=== PATIENT | male | born 1950 | race Caucasian/White ===

== ENCOUNTER 2022-01-10 12:29 | Inpatient (IN) | payer OTHER ==
[~2022-01-10] VITALS: Ht 177.8 cm; Wt 64.3 kg
[~2022-01-10 12:29] MED LIST: Aspirin EC81 MG PO; DOXE25 PO; FAMO20 PO; FURO40 PO; K-TAB ER20 MEQ PO; METO100ER PO; MIRT30 PO; Naltrexone HCl50 MG PO; TERA5 PO
[2022-01-10 13:25] LABS: BASOPHILS ABSOLUTE AUTO 0.09 K/mm3 (0.00-0.23); BASOPHILS PERCENT AUTO 0 % (0-2); EOSINOPHILS PERCENT AUTO 1 % (0-6); Hematocrit 47.9 % (37.0-53.0); Hemoglobin 13.1 g/dL (13.5-17.5); IMMATURE GRAN ABSOLUTE AUTO 1.43 K/mm3 (0.00-0.10); IMMATURE GRAN PERCENT AUTO 4 % (0-1); LYMPHOCYTES ABSOLUTE AUTO 0.77 K/mm3 (0.84-5.20); LYMPHOCYTES PERCENT AUTO 2 % (21-46); MONOCYTES ABSOLUTE AUTO 1.77 K/mm3 (0.16-1.47); MONOCYTES PERCENT AUTO 5 % (4-13); Mean Corpuscular HGB 18.3 pg (26.0-34.0); Mean Corpuscular HGB Conc 27.3 g/dL (31.5-36.5); Mean Corpuscular Volume 67 fL (80-100); NEUTROPHILS ABSOLUTE AUTO 33.49 K/mm3 (1.96-9.15); NEUTROPHILS PERCENT AUTO 89 % (41-73); Platelet Count 484 K/mm3 (150-400); RDW Coefficient Variation 23.1 % (11.7-14.2); RDW Standard Deviation 49.3 fL (35.1-46.3); Red Blood Cell Count 7.14 M/mm3 (4.30-5.90); White Blood Cell Count 37.75 K/mm3 (4.00-11.30)
[2022-01-10 13:33] LABS: Alanine Aminotransfer (ALT/SGP 18 U/L (12-78); Albumin, Blood 2.8 g/dL (3.4-5.0); Albumin/Globulin Ratio 0.7 (0.8-1.8); Alk Phos 141 U/L (50-136); Anion Gap 4 mmol/L (6-16); Aspartate Aminotrans (AST/SGOT 19 U/L (12-37); Bilirubin, Total 0.6 mg/dL (0.1-1.0); Blood Urea Nitrogen 18 mg/dL (8-24); Bun/Creatinine Ratio 18.5 (12.0-20.0); CO2, Blood 33 mmol/L (21-32); Calcium, Blood 9.1 mg/dL (8.5-10.1); Chloride, Blood 107 mmol/L (98-108); Creatinine, Blood 0.98 mg/dL (0.60-1.20); Globulin, Blood 4.2 g/dL (2.2-4.0); Glomerular Filtration Rate >60 (60-); Glucose, Blood 80 mg/dL (70-99); Potassium, Blood 4.9 mmol/L (3.5-5.5); Sodium, Blood 144 mmol/L (136-145)
[2022-01-10 14:22] LABS: Source, Urine Clean Catch
[2022-01-10 14:26] LABS: Appearance, Urine Clear (Clear); Bilirubin, Urine Neg (Neg); Blood, Urine 1+ (Neg); Color, Urine Yellow (P-Yellow); Glucose Qualitative, Urine Neg (Neg); Ketones, Urine Neg (Neg); Leukocyte Esterase, Urine Neg (Neg); Nitrite, Urine Neg (Neg); Protein, Urine 3+ (Neg); Specific Gravity, Urine 1.015 (1.003-1.022); Urobilinogen, Urine NORM (Normal)
[2022-01-10 15:05] LABS: Bacteria Few /hpf; Mucus Light (0-Heavy); Squamous Epithelial Cells Rare /hpf (Few)
[2022-01-10 15:06] LABS: Hyaline Casts 0-2 /lpf (0-2)
[2022-01-10 15:19] LABS: U Amphetamine Screen Not Detected; U Barbituate Screen Not Detected; U Benzodiazapine Screen Not Detected; U Buprenorphine Screen Not Detected; U Cannabinoids Screen Not Detected; U Cocaine Screen Not Detected; U Methadone Screen Not Detected; U Methamphetamine Screen Not Detected; U Opiates Screen Not Detected; U Oxycodone Screen Not Detected; U Phencyclidine Screen Not Detected; U Propoxyphene Screen Not Detected
[2022-01-10 15:45] LABS: Influenza A, PCR NEGATIVE (NEGATIVE); Influenza B, PCR NEGATIVE (NEGATIVE); Resp Syncytial Virus, PCR NEGATIVE (NEGATIVE); SARS-Cov-2 (COVID-19) PCR, MMC NEGATIVE (NEGATIVE)
[2022-01-10] MEDS ORDERED: LISI5 PO (19:59)
[2022-01-10] MEDS ORDERED: STRIVERDI RESPIM4 G1 INH (20:01)
[2022-01-11 04:47] LABS: Hematocrit 48.7 % (37.0-53.0); Hemoglobin 13.1 g/dL (13.5-17.5); Mean Corpuscular HGB 18.2 pg (26.0-34.0); Mean Corpuscular HGB Conc 26.9 g/dL (31.5-36.5); Mean Corpuscular Volume 68 fL (80-100); Platelet Count 487 K/mm3 (150-400); RDW Coefficient Variation 22.9 % (11.7-14.2); RDW Standard Deviation 48.8 fL (35.1-46.3); Red Blood Cell Count 7.19 M/mm3 (4.30-5.90); White Blood Cell Count 37.93 K/mm3 (4.00-11.30)
[2022-01-11 05:14] LABS: Bun/Creatinine Ratio 23.7 (12.0-20.0); Calcium, Blood 9.1 mg/dL (8.5-10.1); Creatinine, Blood 1.31 mg/dL (0.60-1.20); Magnesium, Blood 2.4 mg/dL (1.6-2.4); Potassium, Blood 4.8 mmol/L (3.5-5.5)
--- NOTE | 2022-01-11 05:17 | NUR ---
SHIFT SUMMARY 71 Y M ADMITTED WITH HYPOXIA AND BILAT PNEUPONIA, AND HX OF COPD. PT IS A&O, PLEASANT AND COOPERATIVE WITH CARE. PT HAS BEEN UP IND IN ROOM FOR BRP AND TO SIT UP IN CAHIR. PT REPORTS HE IS FEELING RESTLESS AND NORMALLY HAS A DIFFICULT TIME SLEEPING. PT DID HAVE AN EPISODE OF SATS DROPPING INTO 70'S WHEN PT WAS UP AND WALKING WITHOUT ON. O2 REPLACED AT 3L VIA N/C AND SATS IMPOVED TO >90. NO OTHER ACUTE CHANGES THIS SHIFT.
--- NOTE | 2022-01-11 16:48 | NUR ---
SHIFT SUMMARY THE PATIENT IS ALERT AND ORIENTED X4, COOPERATIVE WITH CARE MOST OF THE TIME. THE PATIENT IS CURRENTLY ON 3LPM OF 02 VIA NASAL CANNULA. THE PATIENT CAN BE NONCOMPLIANT WITH IT AND DESATS. THE PATIENT REFUSED MEDICATIONS AT FIRST THIS AM. THEN AFTER A DISCUSSION THEY FINALLY TOOK THEM. THE PATIENT HAS EDEMA REDDENED BLE'S. THE PATIENT COMPLAINED OF DRY EYES. ARTIFICAL TEARS ORDERED PRN FOR THEM. NO ACUTE CHANGES THIS SHIFT. THE PATIENT MAY POSSIBLY DC TOMORROW. CALL LIGHT WITHIN REACH, BED IN LOWEST POSITION.
[2022-01-12 05:42] LABS: Hematocrit 46.9 % (37.0-53.0); Hemoglobin 12.6 g/dL (13.5-17.5); Mean Corpuscular HGB 18.3 pg (26.0-34.0); Mean Corpuscular HGB Conc 26.9 g/dL (31.5-36.5); Mean Corpuscular Volume 68 fL (80-100); Platelet Count 451 K/mm3 (150-400); RDW Coefficient Variation 22.7 % (11.7-14.2); RDW Standard Deviation 49.6 fL (35.1-46.3); White Blood Cell Count 30.29 K/mm3 (4.00-11.30)
--- NOTE | 2022-01-12 06:07 | NUR ---
SHIFT SUMMARY PT IS A 71 Y/O MALE, ADMITTED FOR HYPOXIA. HE IS A&O X 3, INDEPENDENT IN THE ROOM. PT IS ON 3L O2 VIA NC, SATTING IN THE 90S. PT DESATS TO 80S WHILE ON RA. VITAL SIGNS OTHERWISE STABLE. NO C/O ACUTE PAIN, NAUSEA OR SOB. NO OTHER ACUTE CHANGES IN PT CONDITION NOTED DURING THE NIGHT. WILL CONTINUE TO MONITOR AND TREAT PER EMAR UNTIL HAND OFF TO DAY SHIFT RN.
[2022-01-12 06:17] LABS: BAND PERCENT MAN 8 % (0-8); BASOPHILS PERCENT MAN 0 % (0-2); EOSINOPHILS PERCENT MAN 0 % (0-6); LYMPHOCYTES PERCENT MAN 3 % (21-46); MONOCYTES ABSOLUTE MAN 1.51 K/mm3 (0.16-1.47); MONOCYTES PERCENT MAN 5 % (4-13); NEUTROPHILS ABSOLUTE MAN 27.86 K/mm3 (1.96-9.15); SEG NEUTROPHILS PERCENT MAN 84 % (41-73); TOTAL CELLS COUNTED 100
[2022-01-12 07:04] LABS: Albumin, Blood 2.6 g/dL (3.4-5.0); Albumin/Globulin Ratio 0.7 (0.8-1.8); Bilirubin, Total 0.4 mg/dL (0.1-1.0); Bun/Creatinine Ratio 22.5 (12.0-20.0); Creatinine, Blood 1.78 mg/dL (0.60-1.20); Globulin, Blood 3.7 g/dL (2.2-4.0); Potassium, Blood 4.7 mmol/L (3.5-5.5); Total Protein, Blood 6.3 g/dL (6.4-8.2)
--- NOTE | 2022-01-13 04:37 | NUR ---
RESEARCH PHARMACIST SUMMARY ADMITTED FOR HYPOXIA. PT HAS BEEN SATTING AT 72% ON ROOM AIR THROUGHOUT THE NIGHT PT HAS TAKEN OFF HIS OXYGEN MANY TIMES. OXYGEN INCREASED TO 9L BY HIGH FLOW CANNULA WHILE ASLEEP AND SATTING 95-97% ON THIS. PT RESTLESS THROUGHOUT THE NIGHT AND TAKES PULSE OX OFF FINGER FREQUENTLY. PT GRUMBLING WHEN OXYGEN PLACED BACK ON. PT REFUSING TO TAKE SOME NIGHT MEDICATIONS SAYING "THEY'RE JUST SLIPPING EXTRA MEDICATIONS IN THERE THAT I DON'T NEED." PT EDUCATED ON HIS HEART DIAGNOSES BUT PT REFUSES THAT HE HAS CERTAIN DIAGNOSES. PT HAS BEEN INDEPENDENT IN THE ROOM BUT TAKES OFF HIS OXYGEN WHEN HE GETS OUT OF BED AND HAS TO BE REMINDED TO PUT IT BACK ON.
[2022-01-13 05:39] LABS: BASOPHILS ABSOLUTE AUTO 0.06 K/mm3 (0.00-0.23); BASOPHILS PERCENT AUTO 0 % (0-2); EOSINOPHILS ABSOLUTE AUTO 0.24 K/mm3 (0.00-0.68); EOSINOPHILS PERCENT AUTO 1 % (0-6); Hematocrit 44.8 % (37.0-53.0); Hemoglobin 12.2 g/dL (13.5-17.5); IMMATURE GRAN ABSOLUTE AUTO 0.38 K/mm3 (0.00-0.10); IMMATURE GRAN PERCENT AUTO 1 % (0-1); LYMPHOCYTES ABSOLUTE AUTO 0.71 K/mm3 (0.84-5.20); LYMPHOCYTES PERCENT AUTO 2 % (21-46); MONOCYTES ABSOLUTE AUTO 0.95 K/mm3 (0.16-1.47); MONOCYTES PERCENT AUTO 3 % (4-13); Mean Corpuscular HGB 18.4 pg (26.0-34.0); Mean Corpuscular HGB Conc 27.2 g/dL (31.5-36.5); Mean Corpuscular Volume 68 fL (80-100); NEUTROPHILS ABSOLUTE AUTO 26.78 K/mm3 (1.96-9.15); NEUTROPHILS PERCENT AUTO 92 % (41-73); Platelet Count 428 K/mm3 (150-400); RDW Coefficient Variation 22.8 % (11.7-14.2); RDW Standard Deviation 49.8 fL (35.1-46.3); Red Blood Cell Count 6.62 M/mm3 (4.30-5.90); White Blood Cell Count 29.12 K/mm3 (4.00-11.30)
[2022-01-13 05:50] LABS: Albumin, Blood 2.7 g/dL (3.4-5.0); Anion Gap 4 mmol/L (6-16); Blood Urea Nitrogen 41 mg/dL (8-24); Bun/Creatinine Ratio 29.1 (12.0-20.0); CO2, Blood 35 mmol/L (21-32); Calcium, Blood 9.1 mg/dL (8.5-10.1); Chloride, Blood 102 mmol/L (98-108); Creatinine, Blood 1.41 mg/dL (0.60-1.20); Glomerular Filtration Rate 49 (60-); Glucose, Blood 86 mg/dL (70-99); Phosphorus, Blood 4.3 mg/dL (2.5-4.9); Potassium, Blood 4.7 mmol/L (3.5-5.5); Sodium, Blood 141 mmol/L (136-145)
--- NOTE | 2022-01-13 05:54 | NUR ---
PT SATURATION DROPPING TO 84% WITH 9L HIGH FLOW IN NC. PT IS SNORING AND NOTES THAT HE IS A MOUTH BREATHER AND OFTEN HAS TO PUT THE CANNULA IN HIS MOUTH AT HOME. CANNULA MOVED TO HIS MOUTH AND INCREASED TO 11L WITH IMPROVEMENT TO 92%.
--- NOTE | 2022-01-13 17:34 | NUR ---
SHIFT SUMMARY PT AOX4; PT CALLS APPROPRIATELY. PT VERY FRUSTRATED ABOUT NOT GOING HOME YESTERDAY. PT IS ON 6L O2, DYSPNEA ON EXERTION. SATS LOW 90S. PT ALSO DESATS WHEN MOVING AROUND TO HIGH 80S. PT KEEPS TAKING OFF THE NS IN HIS NOSE, KEEP REMINDING THIS PT. DENIES ANY CP OR ANY CONCERNS AT THIS TIME. BED IS IN THE LOWEST POSITION AND CALL LIGHT WITHIN REACH
[2022-01-14 05:29] LABS: BASOPHILS ABSOLUTE AUTO 0.04 K/mm3 (0.00-0.23); BASOPHILS PERCENT AUTO 0 % (0-2); EOSINOPHILS ABSOLUTE AUTO 0.24 K/mm3 (0.00-0.68); EOSINOPHILS PERCENT AUTO 1 % (0-6); Hematocrit 45.8 % (37.0-53.0); Hemoglobin 12.2 g/dL (13.5-17.5); IMMATURE GRAN ABSOLUTE AUTO 0.43 K/mm3 (0.00-0.10); IMMATURE GRAN PERCENT AUTO 2 % (0-1); LYMPHOCYTES ABSOLUTE AUTO 0.67 K/mm3 (0.84-5.20); LYMPHOCYTES PERCENT AUTO 3 % (21-46); MONOCYTES ABSOLUTE AUTO 0.84 K/mm3 (0.16-1.47); MONOCYTES PERCENT AUTO 3 % (4-13); Mean Corpuscular HGB 18.4 pg (26.0-34.0); Mean Corpuscular HGB Conc 26.6 g/dL (31.5-36.5); Mean Corpuscular Volume 69 fL (80-100); NEUTROPHILS ABSOLUTE AUTO 24.44 K/mm3 (1.96-9.15); NEUTROPHILS PERCENT AUTO 92 % (41-73); Platelet Count 397 K/mm3 (150-400); RDW Coefficient Variation 22.4 % (11.7-14.2); RDW Standard Deviation 50.7 fL (35.1-46.3); Red Blood Cell Count 6.63 M/mm3 (4.30-5.90); White Blood Cell Count 26.66 K/mm3 (4.00-11.30)
[2022-01-14 05:43] LABS: Albumin, Blood 2.8 g/dL (3.4-5.0); Anion Gap 3 mmol/L (6-16); Blood Urea Nitrogen 36 mg/dL (8-24); Bun/Creatinine Ratio 33.6 (12.0-20.0); CO2, Blood 36 mmol/L (21-32); Calcium, Blood 8.9 mg/dL (8.5-10.1); Chloride, Blood 100 mmol/L (98-108); Creatinine, Blood 1.07 mg/dL (0.60-1.20); Glomerular Filtration Rate >60 (60-); Glucose, Blood 83 mg/dL (70-99); Potassium, Blood 4.5 mmol/L (3.5-5.5); Sodium, Blood 139 mmol/L (136-145)
--- NOTE | 2022-01-14 05:47 | NUR ---
SHIFT SUMMARY PT WAKING FREQUENTLY THIS EVENING, REMOVING OXYGEN AND CONT OX MACHINE WHENEVER WAKING. O2 SATS DROP TO THE LOW 80'S ON RA. ON 4.5 L CURRENTLY WITH O2 SATS IN THE MID 90'S. DENIES SOB. DOES NOT APPEAR SOB, EVEN WHEN DESATTING. VITAL SIGNS STABLE. TITRATED DOWN O2 SLIGHTLY, OTHERWISE NO ACUTE CHANGES.
--- NOTE | 2022-01-14 17:15 | NUR ---
SHIFT SUMMARY PT AOX3; FORGETFUL AT TIMES.5L ON OXYGEN. PT WON'T KEEP THE NASAL CANULA ON HIS NOSE; AND KEEPS REMOVING THE O2 MONITOR. EDUCATED THE PT THAT HE NEEDS TO KEEP THE NC FOR HIS OXYGENATION. FRUSTRATED ABOUT NOT GOING HOME TODAY. WILL GIVEN THIS AM, BILAT LE EDEMA +1 TO 2. DENIES CP OR PAIN. BED IS IN THE LOWEST POSITION AND ALL LIGHT WITHIN REACH.
--- NOTE | 2022-01-15 03:34 | NUR ---
SHIFT SUMMARY PT SLEPT BETTER THIS EVENING. STILL CONTINUED TO REMOVE CONT PULSE OX SENSOR AND OXYGEN FREQUENTLY. WOULD DESAT INTO THE 80'S ON RA. O2 SATS IN THE MID TO HIGH 90'S ON 4 L. NO SOB NOTED. SOME CONFUSION NOTED. PT EAGER TO D/C BACK HOME. VITAL SIGNS STABLE. NO ACUTE CHANGES THIS EVENING. WILL CONTINUE TO MONITOR.
[2022-01-15 05:13] LABS: Hematocrit 45.9 % (37.0-53.0); Hemoglobin 12.2 g/dL (13.5-17.5); Mean Corpuscular HGB 18.2 pg (26.0-34.0); Mean Corpuscular HGB Conc 26.6 g/dL (31.5-36.5); Mean Corpuscular Volume 68 fL (80-100); Platelet Count 438 K/mm3 (150-400); RDW Coefficient Variation 22.8 % (11.7-14.2); RDW Standard Deviation 50.6 fL (35.1-46.3); Red Blood Cell Count 6.72 M/mm3 (4.30-5.90); White Blood Cell Count 29.39 K/mm3 (4.00-11.30)
[2022-01-15 06:07] LABS: BAND PERCENT MAN 7 % (0-8); BASOPHILS PERCENT MAN 0 % (0-2); EOSINOPHILS ABSOLUTE MAN 0.58 K/mm3 (0.00-0.68); EOSINOPHILS PERCENT MAN 2 % (0-6); LYMPHOCYTES ABSOLUTE MAN 0.58 K/mm3 (0.84-5.20); LYMPHOCYTES PERCENT MAN 2 % (21-46); MONOCYTES ABSOLUTE MAN 0.58 K/mm3 (0.16-1.47); MONOCYTES PERCENT MAN 2 % (4-13); NEUTROPHILS ABSOLUTE MAN 27.62 K/mm3 (1.96-9.15); SEG NEUTROPHILS PERCENT MAN 87 % (41-73); TOTAL CELLS COUNTED 100
[2022-01-15] MEDS ORDERED: ALBU2.5V5 INH (11:36)
[2022-01-15] MEDS ORDERED: DOXA1 PO (11:37)
[2022-01-15] MEDS ORDERED: Lopressor 25 mg25 MG PO (11:38)
[2022-01-15] MEDS ORDERED: XARELTO20 MG PO (11:39)
[2022-01-15] MEDS ORDERED: FURO40 PO (11:40)
--- NOTE | 2022-01-15 15:28 | NUR ---
DISCHARGE PATIENT TRANSPORTED VIA WHEELCHAIR TO [facility]. DISCHARGE INSTRUCTIONS EXPLAINED TO PATIENT. PATIENT STATED UNDERSTANDING. PACKET SENT WITH PATIENT. PHARMACIST EXPLAINED NEW MEDICATIONS TO PATIENT. BELONGINGS SENT WITH PATIENT. PATIENT SENT ON 3L VIA N/C. THIS IS BASELINE AND PATIENT HAS SUPPLIES AT HOME. MEDICATIONS FAXED TO PREFERRED PHARMACY. PATIENT TO SCHEDULE FOLLOW UP APPOINTMENTS. IV REMOVED WITHOUT DIFFICULTY.
== END 2022-01-15 15:37 | disposition home or self-care (01) | DRG 871 ==
LOC: ER 12:29 → MEDS 15:45 → ENPENDDIS 01-15 11:17 → MEDS 01-15 15:37
PROVIDERS: Emergency Medicine; Family Medicine; Nurse Practitioner Acute Care; ADMIT Internal Medicine
PROC: 3E03329 Introduction of Other Anti-infective into Peripheral Vein, Percutaneous Approach (ICD-10-PCS; principal; 2022-01-10)
PROC: 5A0935A Assistance with Respiratory Ventilation, Less than 24 Consecutive Hours, High Flow/Velocity Cannula (ICD-10-PCS; 2022-01-13)
DX: A41.9 Sepsis, unspecified organism (principal); J18.9 Pneumonia, unspecified organism; I50.23 Acute on chronic systolic (congestive) heart failure; J96.21 Acute and chronic respiratory failure with hypoxia; I21.A9 Other myocardial infarction type; J44.0 Chronic obstructive pulmonary disease with (acute) lower respiratory infection; C91.90 Lymphoid leukemia, unspecified not having achieved remission; N17.9 Acute kidney failure, unspecified; Z20.822 Contact with and (suspected) exposure to COVID-19; F17.210 Nicotine dependence, cigarettes, uncomplicated; D75.838 Other thrombocytosis; R21 Rash and other nonspecific skin eruption; K21.9 Gastro-esophageal reflux disease without esophagitis; D63.1 Anemia in chronic kidney disease; N40.0 Benign prostatic hyperplasia without lower urinary tract symptoms; Z66 Do not resuscitate; I27.20 Pulmonary hypertension, unspecified; D72.829 Elevated white blood cell count, unspecified; Z99.81 Dependence on supplemental oxygen; Z79.82 Long term (current) use of aspirin; Z88.5 Allergy status to narcotic agent; Z88.0 Allergy status to penicillin; Z79.899 Other long term (current) drug therapy
CPT/HCPCS: 0241U; 36415; 71045; 80048; 80053; 80069; 81001; 83605; 83735; 83880; 84145; 84484; 85025; 85027; 87040; 87086; 93005; 93010; 93971; 94640; 94664; 94760; 94761; 94762; 96374; A9270; C8929; J0692; J0696; J1940; Q9957

== ENCOUNTER 2022-02-11 15:06 | Inpatient (IN) | payer OTHER ==
[~2022-02-11] VITALS: Ht 175.3 cm; Wt 65.3 kg
[~2022-02-11 15:06] MED LIST changes: +ALBU2.5V5 INH; +DOXA1 PO; +LISI5 PO; +Lopressor 25 mg25 MG PO; +STRIVERDI RESPIM4 G1 INH; +XARELTO20 MG PO
[2022-02-11 15:37] LABS: Source, Urine Foley catheter
[2022-02-11 15:42] LABS: Appearance, Urine Clear (Clear); Bilirubin, Urine Neg (Neg); Blood, Urine 4+ (Neg); Color, Urine Yellow (P-Yellow); Glucose Qualitative, Urine Neg (Neg); Ketones, Urine 1+ (Neg); Leukocyte Esterase, Urine Neg (Neg); Nitrite, Urine Neg (Neg); Protein, Urine 3+ (Neg); Specific Gravity, Urine 1.025 (1.003-1.022); Urobilinogen, Urine 1+ (Normal)
[2022-02-11 15:43] LABS: BASOPHILS ABSOLUTE AUTO 0.14 K/mm3 (0.00-0.23); BASOPHILS PERCENT AUTO 0 % (0-2); EOSINOPHILS ABSOLUTE AUTO 0.16 K/mm3 (0.00-0.68); EOSINOPHILS PERCENT AUTO 0 % (0-6); Hematocrit 52.6 % (37.0-53.0); Hemoglobin 14.4 g/dL (13.5-17.5); IMMATURE GRAN ABSOLUTE AUTO 1.72 K/mm3 (0.00-0.10); IMMATURE GRAN PERCENT AUTO 4 % (0-1); LYMPHOCYTES PERCENT AUTO 2 % (21-46); MONOCYTES ABSOLUTE AUTO 2.36 K/mm3 (0.16-1.47); MONOCYTES PERCENT AUTO 5 % (4-13); Mean Corpuscular HGB 18.5 pg (26.0-34.0); Mean Corpuscular HGB Conc 27.4 g/dL (31.5-36.5); Mean Corpuscular Volume 67 fL (80-100); NEUTROPHILS ABSOLUTE AUTO 38.21 K/mm3 (1.96-9.15); NEUTROPHILS PERCENT AUTO 88 % (41-73); Platelet Count 485 K/mm3 (150-400); RDW Coefficient Variation 24.6 % (11.7-14.2); RDW Standard Deviation 52.9 fL (35.1-46.3); White Blood Cell Count 43.59 K/mm3 (4.00-11.30)
[2022-02-11 15:49] LABS: Granular Casts 0-2 /lpf (0)
[2022-02-11 15:50] LABS: Bacteria Few /hpf; Mucus Mod (0-Heavy); Squamous Epithelial Cells Few /hpf (Few)
[2022-02-11 15:51] LABS: Albumin, Blood 2.8 g/dL (3.4-5.0); Albumin/Globulin Ratio 0.7 (0.8-1.8); Bilirubin, Total 0.6 mg/dL (0.1-1.0); Calcium, Blood 8.8 mg/dL (8.5-10.1); Creatinine, Blood 1.2 mg/dL (0.60-1.20); Globulin, Blood 3.8 g/dL (2.2-4.0); Potassium, Blood 4.3 mmol/L (3.5-5.5); Total Protein, Blood 6.6 g/dL (6.4-8.2)
--- NOTE | 2022-02-12 00:20 | NUR ---
ADMIT *LATE ENTRY* PT ARRIVED @2049 TO RM 303, 4 PER SLIDE TRANSFER TO RM BED. PT ADMITTED FOR NEW AMS R/T DX BRAIN TUMOR. AOX2-NAME, BIRTHDATE, TOWN. HAS GARBLED MUMMBLING SPEECH, DIFFICULT TO UNDERSTAND. CAN FOLLOW SIMPLE DIRECTIONS HOWEVER VERY DROWSY/LETHARGIC & DOESNT STAY AWAKE. CALL LIGHT & BED ALARM IN PLACE. WILL MONITOR.
--- NOTE | 2022-02-12 00:24 | NUR ---
BEDSIDE SWALLOW SCREENING PER PROTOCOL PT MEETS EXCLUSION CRITERIA & IS TOO HIGH RISK FOR ASPIRATION BECAUSE HE IS UNABLE TO STAY AWAKE. THEREFORE WILL PLACE PT NPO AT THIS TIME.
[2022-02-12 04:57] LABS: BASOPHILS ABSOLUTE AUTO 0.22 K/mm3 (0.00-0.23); BASOPHILS PERCENT AUTO 0 % (0-2); EOSINOPHILS ABSOLUTE AUTO 0.01 K/mm3 (0.00-0.68); EOSINOPHILS PERCENT AUTO 0 % (0-6); Hemoglobin 14.9 g/dL (13.5-17.5); IMMATURE GRAN PERCENT AUTO 4 % (0-1); LYMPHOCYTES ABSOLUTE AUTO 0.78 K/mm3 (0.84-5.20); LYMPHOCYTES PERCENT AUTO 1 % (21-46); MONOCYTES ABSOLUTE AUTO 0.88 K/mm3 (0.16-1.47); MONOCYTES PERCENT AUTO 2 % (4-13); Mean Corpuscular HGB 18.7 pg (26.0-34.0); Mean Corpuscular HGB Conc 26.2 g/dL (31.5-36.5); Mean Corpuscular Volume 71 fL (80-100); NEUTROPHILS PERCENT AUTO 93 % (41-73); Platelet Count 500 K/mm3 (150-400); RDW Standard Deviation 57.2 fL (35.1-46.3); Red Blood Cell Count 7.95 M/mm3 (4.30-5.90)
[2022-02-12 05:04] LABS: Hematocrit 56.8 % (37.0-53.0)
[2022-02-12 05:05] LABS: White Blood Cell Count 57.79 K/mm3 (4.00-11.30)
--- NOTE | 2022-02-12 06:45 | NUR ---
SHIFT SUMMARY AOX2-NAME, BIRTHDATE, TOWN-UPON ARRIVAL TO FLOOR AFTER TRANSFER. HOWEVER PT HAS BEEN LETHARGIC, DROWSY SINCE & UNABLE TO UNDERSTAND PTS RESPONSES TO QUESTIONS. GARBLED MUMMBLING SLEEP. FALLS RIGHT TO SLEEP AFTER TRYING TO RESPOND. VSS. TELE SINUS TACH HR 103. NO S/SX PAIN, N/V OR DYSPNEA. SPO2 >90% ON 3L O2. HELD PO MEDS BECAUSE PT IS ASPIRATION RISK, SP EVAL ORDERED. PT HAD CRITICAL WBC THIS AM DISCUSSED c CHARGE NURSE LISANDRO BOWSER, WILL PASS INFO TO ONCOMING NURSE. PLAN WAS FOR PT TO HAVE MRI, HOWEVER PT CANT ANSWER SCREENING QUESTIONS. CALL LIGHT IN REACH.
--- NOTE | 2022-02-12 16:17 | NUR ---
PATIENT REMAINS LETHARGIC, DOES WAKE TO VOICE BUT QUICKLY BACK TO SLEEP. HAS RESPONDED VERBALLY A FEW TIMES TODAY, BUT SPEECH IS VERY GARBLED AND DIFFICULT TO UNDERSTAND. KEEPING NPO DUE TO SEDATION. MRI CANCELLED DUE TO PATIENTS INABILITY TO ANSWER REQUIRED SCREENING QUESTIONS FOR TEST. DR. SERRANO AT BEDSIDE FOR CONSULT. 20G IV TO L AC WN. SPOKE WITH DR VILLA ABOUT IV FLUIDS DUE TO NPO STATUS AND HE PLANS TO ORDER SOME. ALONSO D/C'D, ATTENDS IN PLACE. BLE REDDENED, OTHERWISE SKIN INTACT. 4LO2 TO MAINTAIN SATS. ORAL CARE AND REPOSITIONING Q2 HOURS. FALL PRECAUTIONS IN PLACE PER UNIT PROTOCOL.
--- NOTE | 2022-02-12 18:13 | NUR ---
PATIENTS NATALI DUNBAR CAME BY TO SEE THE PATIENT. PATIENT DID NOT WAKE DURING THE VISIT TO SPEAK WITH [facility]. PAT[facility] HAS BE[facility] FOR THE LAST 6 MON[facility]. KINA IS AVAIALBLE FOR QUESTIONS AND HIS PHONE NUMBER IS [phone].
[2022-02-13 04:49] LABS: Hemoglobin 14.7 g/dL (13.5-17.5); Mean Corpuscular HGB 18.6 pg (26.0-34.0); Mean Corpuscular HGB Conc 24.8 g/dL (31.5-36.5); Mean Corpuscular Volume 75 fL (80-100); NRBC ABSOLUTE 0.12 K/mm3 (0.00-0.02); NRBC Auto 0.2 /100 WBC (0.0-0.2); Platelet Count 611 K/mm3 (150-400); RDW Coefficient Variation 25.2 % (11.7-14.2); RDW Standard Deviation 60.5 fL (35.1-46.3); Red Blood Cell Count 7.92 M/mm3 (4.30-5.90)
[2022-02-13 04:57] LABS: Hematocrit 59.2 % (37.0-53.0); Mean Platelet Volume 10.4 fL (9.1-12.4)
[2022-02-13 05:32] LABS: Bun/Creatinine Ratio 26.5 (12.0-20.0); Creatinine, Blood 2.6 mg/dL (0.60-1.20)
[2022-02-13 05:35] LABS: Potassium, Blood 6.4 mmol/L (3.5-5.5)
[2022-02-13 05:40] LABS: White Blood Cell Count 77.96 K/mm3 (4.00-11.30)
--- NOTE | 2022-02-13 07:30 | NUR ---
SHIFT SUMMARY PT NONVERBAL & MOSTLY NONRESPONSIVE TONIGHT COMPARED TO PREVIOUS NIGHT. UNABLE TO ANSWER QUESTIONS OR FOLLOW DIRECTIONS. DOES MOAN OR MAKE NOISES c VERBAL STIMULI OR REPOSITIONING. PT ATTEMPTS TO OPEN EYES WHEN ASKED HOWEVER THEY TEND TO CLOSE OR GAZE UNDER EYELIDS SO ALL I COULD SEE WAS WHITE SCLERA. TELE ST @102. VSS. SPO2 >90% ON 4L. LUNGS DIM c SCATTERED EXP WHEEZE. PT HAD + BLOOD CX IN 1/2 VIALS, ALSO CRITICAL K @6.4 & WBC HAS INCREASED TO 77.[address] DIAZ ORDERED D5, CALCIUM GLUCONATE & 10U REG INSULIN FOR CRITICAL K, NO OTHER ORDERS GIVEN. +1 EDEMA TO BLE, REDNESS & PURPLE RED DISCOLORED TOES, VERY COLD TO TOUCH. BED ALARM & CALL LIGHT IN PLACE. AROUND 0500 DIRECT CUSTOMER SERVICE REPRESENTATIVE CALLED THIS NURSE INTO BECAUSE PT WAS PULLING OFF O2, TELE, PULLED OUT IV & WAS ATTEPTING TO GET OOB, HE WAS UNABLE TO TELL STAFF HIS NEEDS & ONCE REPOSITIONED BACK TO BED HE WAS LETHARGIC AGAIN.
[2022-02-13 10:38] LABS: Bun/Creatinine Ratio 27.2 (12.0-20.0); Creatinine, Blood 2.54 mg/dL (0.60-1.20); Potassium, Blood 5.6 mmol/L (3.5-5.5)
--- NOTE | 2022-02-13 18:04 | NUR ---
REPORT CALLED TO WILBER GRAY AT [facility]. AWAITING COVID TEST RESULTS AND WILL SET UP TRANSPORT.
[2022-02-13 18:23] LABS: Influenza A, PCR NEGATIVE (NEGATIVE); Influenza B, PCR NEGATIVE (NEGATIVE); Resp Syncytial Virus, PCR NEGATIVE (NEGATIVE); SARS-Cov-2 (COVID-19) PCR, MMC NEGATIVE (NEGATIVE)
--- NOTE | 2022-02-13 18:47 | NUR ---
pt more alert this afternoon but struggling to track conversation. Review of chart and pt assessment may not tolerate aggressive care. Plan is to send pt to [facility]. Will follow up may be better served by hospice. care attemtpted to find family will see if hsi friend will participate in his decision making may need guardian.
[2022-02-13 20:51] LABS: Bun/Creatinine Ratio 33.6 (12.0-20.0); Calcium, Blood 8.3 mg/dL (8.5-10.1); Creatinine, Blood 2.29 mg/dL (0.60-1.20); Potassium, Blood 5.6 mmol/L (3.5-5.5)
== END 2022-02-13 20:20 | DRG 54 ==
LOC: ER 15:06 → MEDS 20:30
PROVIDERS: Emergency Medicine; Internal Medicine; Nurse Practitioner Acute Care; ADMIT Internal Medicine
DX: D49.6 Neoplasm of unspecified behavior of brain (principal); G93.6 Cerebral edema; G92.8 Other toxic encephalopathy; N17.9 Acute kidney failure, unspecified; J96.11 Chronic respiratory failure with hypoxia; I50.22 Chronic systolic (congestive) heart failure; J44.9 Chronic obstructive pulmonary disease, unspecified; Z20.822 Contact with and (suspected) exposure to COVID-19; I51.3 Intracardiac thrombosis, not elsewhere classified; I27.20 Pulmonary hypertension, unspecified; Z66 Do not resuscitate; E86.0 Dehydration; N18.30 Chronic kidney disease, stage 3 unspecified; Z88.0 Allergy status to penicillin; Z88.5 Allergy status to narcotic agent; N40.0 Benign prostatic hyperplasia without lower urinary tract symptoms; K21.9 Gastro-esophageal reflux disease without esophagitis; Z79.899 Other long term (current) drug therapy
CPT/HCPCS: 0241U; 36415; 51702; 70450; 70460; 71045; 71260; 74177; 80048; 80053; 81001; 83605; 83880; 84484; 85025; 85027; 87040; 92610; 93005; 93010; 94640; 94664; 94760; 96365-59; 96366-59; 96375-59; 99285-25; J0610; J0692; J1100; J1815; J1940; J7030; J7040; J7060; Q9967